=== PATIENT | female | born 1975 ===

== ENCOUNTER 2016-07-11 20:29 | Emergency (ER) | payer MEDICAID ==
--- NOTE | ~2016-07-11 | ER ---
PATIENT'S NAME: DIEGO [facility] AGE: 40 Y [address] ROOM: [place] [address] LOCATION: ED ADMIT DATE: 07/11/2016 ER/Outpatient Report DISCHARGE DATE: 07/11/2016 FAMILY PHYSICIAN: Conor Zuleta MD ATTENDING PHYSICIAN: Dakota Quintanilla Time of Arrival: 2028. Time of Evaluation: 2034. CHIEF COMPLAINT: Pelvic pain. HISTORY OF PRESENT ILLNESS: This is a 40-year-old female, who presents to the ER, who states she had acute onset of pelvic pain approximately an hour prior to arrival. The patient states it is not located on one side more than the other. She states it is sharp in nature. She states that she has not been running any fevers. She has had no troubles with bowel movements. Her last bowel movement was today and was normal. She has had no troubles with urination. It does make her feel a little bit nauseated. She describes her pain as sharp in nature. It does not radiate anywhere. She states that she did not take anything for her pain prior to arrival. She states that she did have a hysterectomy in the past. She denies any unusual vaginal discharge. ALLERGIES: NO KNOWN ALLERGIES. MEDICATIONS: Please see medication list in nurse's notes. PAST MEDICAL HISTORY: Hypertension, hypothyroidism, cholecystectomy, and hysterectomy. SOCIAL HISTORY: Does drink alcohol occasionally. Denies any smoking use. REVIEW OF SYSTEMS: A 10-point review of systems was completed and was negative with the exception of those discussed in the HPI. PHYSICAL EXAMINATION: VITAL SIGNS: Height 5 feet 1 inch stated, weight 93.2 kg taken, blood pressure is 172/101, pulse 67, respirations 20, temperature 97.3 degrees tympanically, saturations 97% on room air. [place] Coma Score is 15. GENERAL: An alert, obese female, in mild distress. PATIENT'S NAME: DIEGO [facility] AGE: 40 Y [address] ROOM: [place], [place] [address] LOCATION: [facility] ADMIT DATE: 07/11/2016 ER/Outpatient Report DISCHARGE DATE: 07/11/2016 FAMILY PHYSICIAN: Conor Zuleta MD ATTENDING PHYSICIAN: Dakota Quintanilla HEENT: Head: Normocephalic. Eyes: Pupils are equal and reactive to light. She does display moist mucous membranes. LUNGS: Clear to auscultation bilaterally. No wheezes or crackles. Normal respiratory effort. HEART: Regular rate and rhythm. No lifts, thrills, or murmurs. ABDOMEN: Soft. She does have some tenderness in her suprapubic area. She does have good bowel sounds throughout. No masses are palpated. : Exam was done. She has no abnormal vaginal discharge. No lesions or rashes noted. NEURO: Cranial nerves 2 through 12 grossly intact. Gait is steady without assistance. LABORATORY DATA AND X-RAYS: CBC: White count is 8.8, hemoglobin is 11.9, platelets 202. CMS: A/G ratio is 0.9, otherwise unremarkable. Urinalysis is negative for any infection. Ultrasound was done, it shows that she has a complex cyst on the right ovary that measures 2.4 cm. It does have good blood flow to that ovary, and she does have a little bit of free fluid noted. On her left ovary, she has a left complex cyst, measuring 1.5 cm, also with good blood flow and also with a little bit of free fluid. IMPRESSION: Bilateral ovarian cysts. ASSESSMENT AND PLAN: We did give the patient some ibuprofen here in the emergency room for her pain. We will dismiss her to home with a prescription for [place] to use as directed. She states that this does make her feel a little bit nauseated when she takes that kind of medications, so we sent her home with some Zofran as well. She needs to continue to monitor her symptoms closely and should follow up with her primary care physician for followup care. The patient understands and agrees with care. RODRI RAGLAND PA-C FOR MD LIYAH AGUILERA/som /[id number] d: t: 07/13/16 2342, OUTPATIENT REPORT
[~2016-07-11 20:29] MED LIST: ASPIRIN325 MG PO; FEOSOL325 MG PO; HYDROCHLOROTHIA25 MG PO; LEVOXYL50 MCG PO; LIPITOR40 MG PO; LIPITOR80 MG PO; LOPRESSOR12.5 MG/0. PO; MONONESSA 28 T1 EACH PO; PAIN RELIEF650 MG PO; PERCOCET 5-3251 EACH PO; PRINIVIL OR ZES10 MG PO
[2016-07-11 20:49] LABS: BILIRUBIN URINE NEGATIVE (NEGATIVE); BLOOD URINE NEGATIVE /UL (NEGATIVE); COLOR URINE STRAW (YELLOW); GLUCOSE URINE NEGATIVE (NEGATIVE); KETONE URINE NEGATIVE (NEGATIVE); LEUKOCYTES URINE NEGATIVE /UL (NEGATIVE); NITRITE URINE NEGATIVE (NEGATIVE); PROTEIN URINE NEGATIVE (NEGATIVE); SPEC GRAVITY URINE 1.005 (1.003-1.035); TURBIDITY URINE CLEAR (CLEAR); UROBILINOGEN URINE NORMAL (NORMAL)
[2016-07-11 21:26] LABS: BASOPHIL # 0.1 K/uL (0.0-0.2); BASOPHIL % 0.6 %; EOSINOPHIL # 0.1 K/uL (0.0-0.5); EOSINOPHIL % 1.6 %; HEMOGLOBIN 11.9 g/dL (11.0-15.0); IMMATURE GRANULOCYTE % 0.2 %; LYMPHOCYTE # 2.5 K/uL (0.8-4.0); LYMPHOCYTE % 28.8 %; MCH 29.1 pg (27.0-34.0); MCHC 33.1 gm/dL (32.0-36.5); MONOCYTE # 0.8 K/uL (0.0-1.0); MONOCYTE % 9.5 %; MPV 11.4 fl (9.4-12.4); NEUTROPHIL # (ANC) 5.2 K/uL (1.8-7.8); NEUTROPHIL % 59.3 %; NRBC % 0 /100WBC (0-0.00); PLATELET COUNT 202 K/uL (150-450); RBC 4.09 M/uL (3.50-5.50); RDW-CV 13.2 % (11.9-14.6); WBC 8.8 K/uL (4.0-11.0)
[2016-07-11 21:42] LABS: ALBUMIN 3.5 gm/dL (3.5-5.0); ALK PHOS 101 IU/L (33-138); ALT 27 IU/L (12-78); AST 17 IU/L (10-40); BLOOD UREA NITROGEN 15 mg/dL (6-24); CALCIUM 8.7 mg/dL (8.5-10.5); CHLORIDE 108 mMol/L (96-110); CO2 23 mMol/L (22-32); CREATININE 0.7 mg/dL (0.5-1.1); ESTIMATED GFR (MDRD EQUATION) > 60; SODIUM 141 mMol/L (135-145); TOTAL BILIRUBIN 0.2 mg/dL (0.0-1.5); TOTAL PROTEIN 7.5 g/dL (6.0-8.4)
== END 2016-07-11 22:50 | disposition disaster alternative care site (69) ==
LOC: GMED 20:29
PROVIDERS: Emergency Medicine
DX: N83.202 Unspecified ovarian cyst, left side (principal); N83.201 Unspecified ovarian cyst, right side; I10 Essential (primary) hypertension; E03.9 Hypothyroidism, unspecified; Z90.49 Acquired absence of other specified parts of digestive tract; Z79.899 Other long term (current) drug therapy